=== PATIENT | male | born 1955 | race Caucasian/White ===

== ENCOUNTER 2020-04-08 10:06 | Emergency (ER) | payer OTHER, MEDICAID ==
[~2020-04-08] VITALS: Ht 175.3 cm; Wt 110.7 kg
[2020-04-08 10:17] VITALS: Ht 175.3 cm; Wt 110.7 kg
[2020-04-08 11:13] VITALS: BP 146/92
== END 2020-04-08 11:13 | disposition home or self-care (01) ==
LOC: ED 10:06
DX: S01.01XA Laceration without foreign body of scalp, initial encounter (principal); S50.312A Abrasion of left elbow, initial encounter; I10 Essential (primary) hypertension; Z90.79 Acquired absence of other genital organ(s); W18.30XA Fall on same level, unspecified, initial encounter; Y93.89 Activity, other specified; Y92.89 Other specified places as the place of occurrence of the external cause; Y99.8 Other external cause status
CPT/HCPCS: 90715; J2001

== ENCOUNTER 2020-04-11 09:59 | Emergency (ER) | payer OTHER, MEDICAID ==
[~2020-04-11] VITALS: Ht 175.3 cm; Wt 110.7 kg
[2020-04-11 10:03] VITALS: Ht 175.3 cm; Wt 110.7 kg
[2020-04-11 10:40] VITALS: BP 139/95
== END 2020-04-11 10:40 | disposition home or self-care (01) ==
LOC: ED 09:59
DX: S01.01XD Laceration without foreign body of scalp, subsequent encounter (principal); I10 Essential (primary) hypertension; E66.9 Obesity, unspecified; Z68.36 Body mass index [BMI] 36.0-36.9, adult; X58.XXXD Exposure to other specified factors, subsequent encounter